=== PATIENT | male | born 1990 | race African-American/Black ===

== ENCOUNTER 2017-02-07 17:02 | Emergency (ER) | payer SELFPAY ==
[~2017-02-07] VITALS: Ht 182.9 cm; Wt 79.5 kg
[2017-02-07 17:10] VITALS: TEMP 99.7
[2017-02-07 18:19] VITALS: BP 138/80; PULSE 82
== END 2017-02-07 18:21 | disposition home or self-care (01) ==
LOC: COL.ER 17:02
DX: T74.11XA Adult physical abuse, confirmed, initial encounter (principal); S00.12XA Contusion of left eyelid and periocular area, initial encounter; S00.81XA Abrasion of other part of head, initial encounter; R40.2412 Glasgow coma scale score 13-15, at arrival to emergency department; Y04.2XXA Assault by strike against or bumped into by another person, initial encounter; Y92.410 Unspecified street and highway as the place of occurrence of the external cause

== ENCOUNTER 2018-07-29 04:00 | Emergency (ER) | payer BC ==
[~2018-07-29] VITALS: Ht 182.9 cm; Wt 88.6 kg
[2018-07-29 04:05] VITALS: BP 124/89; TEMP 97.5
[2018-07-29] MEDS ORDERED: AMOXICILLIN/CLA1 TA1 PO (04:38)
[2018-07-29 04:50] VITALS: PULSE 69
== END 2018-07-29 04:50 | disposition home or self-care (01) ==
LOC: COL.ER 04:00
DX: J02.9 Acute pharyngitis, unspecified (principal)